=== PATIENT | female | born 1945 | race Caucasian/White ===

== ENCOUNTER 2017-08-25 09:51 | Inpatient (IN) | payer OTHER ==
[~2017-08-25] VITALS: Ht 152.4 cm; Wt 63.5 kg
[~2017-08-25 09:51] MED LIST: INDAPAMIDE2.5 MG PO; NORVASC2.5 M1 PO; TRICOR48 MG PO; [UNRECOGNIZED DRUG - OTHER] PO
[2017-10-12] MEDS ORDERED: TRICOR145 MG PO (09:36)
[2017-10-20] MEDS ORDERED: DOCUSATE SODIU100 MG PO (09:31)
[2017-10-20] MEDS ORDERED: PERCOCET 5-3251 EACH PO (09:33)
[2017-10-20] MEDS ORDERED: CLONAZEPAM1 MG PO (09:33)
== END 2017-10-20 12:59 | disposition home or self-care (01) | DRG 455 ==
LOC: PED 10-19 05:10 → O/R 10-19 05:10 → SURH 10-19 07:00 → PED 10-19 10:51
PROVIDERS: Orthopaedic Surgery Orthopaedic Surgery of the Spine
PROC: 0RG2071 Fusion of 2 or more Cervical Vertebral Joints with Autologous Tissue Substitute, Posterior Approach, Posterior Column, Open Approach (ICD-10-PCS; 2017-10-19)
PROC: 0RT30ZZ Resection of Cervical Vertebral Disc, Open Approach (ICD-10-PCS; 2017-10-19)
PROC: 07DS3ZZ Extraction of Vertebral Bone Marrow, Percutaneous Approach (ICD-10-PCS; 2017-10-19)
PROC: 0RG20A0 Fusion of 2 or more Cervical Vertebral Joints with Interbody Fusion Device, Anterior Approach, Anterior Column, Open Approach (ICD-10-PCS; principal; 2017-10-19 07:00)
DX: M47.22 Other spondylosis with radiculopathy, cervical region (principal); M50.121 Cervical disc disorder at C4-C5 level with radiculopathy; I10 Essential (primary) hypertension; E03.8 Other specified hypothyroidism